=== PATIENT | male | born 1955 | race Caucasian/White ===

== ENCOUNTER 2017-09-30 16:27 | Outpatient (CLI) | payer BC ==
[~2017-09-30 16:27] MED LIST: ACYCLOVIR400 MG BC; ADDERAL20 MG ORAL; ALLOPURINOL300 M1 ORAL; CLOMIPHENE CITR50 MG PO; FLOMAX0.4 MG ORAL; TESTOSTERONE5 G1 IM; TRICOR145 MG ORAL
--- NOTE | 2017-09-30 17:07 | Diagnostic Imaging Report ---
Indication: Cough Technique: XRAY Chest 2v Comparison: None Findings: Heart size within normal limits. Mediastinal contours are sharp. There is no focal airspace consolidation to suggest pneumonia. No pleural effusion or pneumothorax. There is a 5 mm nodular density in the right upper lung seen best on frontal view. Additionally, a 3 mm nodular density projecting over the right hemidiaphragm is noted on lateral view. Impression: No focal airspace consolidation to suggest pneumonia as questioned clinically. Two nodular densities as above. Pulmonary nodules are not excluded. Recommend CT of the chest for more definitive evaluation.
== END 2017-09-30 18:27 | disposition home or self-care (01) ==
LOC: RAD 16:27
DX: R06.02 Shortness of breath (principal)
CPT/HCPCS: 71046

== ENCOUNTER 2017-10-16 15:40 | Outpatient (CLI) | payer BC ==
--- NOTE | 2017-10-16 16:23 | Diagnostic Imaging Report ---
Clinical Indication: Cough, recent abnormal chest radiograph Technique: Spiral acquisitions obtained through the chest. No IV contrast utilized, . Multiplanar reconstructions generated. Total dose length product 1035.35 mGycm. CTDIvol(s) 22.42 mGy. Dose reduction achieved using automated exposure control Comparison: Chest radiograph 09/30/2017 Findings: There is a 3 mm calcified granuloma in the posterior right middle lobe this does not definitely correspond to either of the abnormalities reported on recent chest radiograph. No right upper lobe or basilar nodules demonstrated. The lungs and pleural spaces are otherwise clear. The heart size is normal. No mediastinal or hilar mass or adenopathy. There is minimal aortic valvular calcification. Some calcifications are seen in the right thyroid lobe. No axillary or chest wall mass or adenopathy. The bones are unremarkable. The included upper abdominal anatomy demonstrates mild splenomegaly, spleen measuring 13.5 cm long axis dimension Impression: No definite pulmonary parenchymal abnormality seen to correspond to the nodular opacities described on recent chest radiograph. These probably just represented overlapping normal structures 3 mm calcified granuloma in the posterior right middle lobe, without chest radiographic correlate No acute process Mild splenomegaly Incidental finding of thyroid calcifications The CT scanner at [facility] is accredited by the [employer] and the scans are performed using protocols designed to limit radiation exposure to as low as reasonably achievable to attain images of sufficient resolution adequate for diagnostic evaluation.
== END 2017-10-16 17:40 | disposition home or self-care (01) ==
LOC: CAT 15:40
DX: R91.1 Solitary pulmonary nodule (principal); R16.1 Splenomegaly, not elsewhere classified; R05 Cough
CPT/HCPCS: 71250